=== PATIENT | female | born 1995 | race Asian ===

== ENCOUNTER 2017-01-23 12:27 | Emergency (ER) | payer MEDICAID ==
[2017-01-23 12:49] VITALS: RESP 16; TEMP 97.9; O2SAT 99
[2017-01-23] MEDS ORDERED: IBUPROFEN 600 MG TAB PO ONE (14:08)
--- NOTE | 2017-01-23 14:09 | EDPHY ---
H & P Smoking Status: Never smoked Time Seen by Provider: 01/23/17 13:26 HPI/ROS: CHIEF COMPLAINT: Ring stuck on finger HISTORY OF PRESENT ILLNESS: This is a 21-year-old female presenting to the emergency department reports trying on engagement ring yesterday evening and has been having a hard time trying to get the ring off. She said she tried using dental floss and [place] without resolved. Complaining of right ring finger swelling. Denies any other complaints REVIEW OF SYSTEMS: Constitutional: No fever, no chills. Eyes: No discharge. ENT: No sore throat. Cardiovascular: No chest pain, no palpitations. Respiratory: No cough, no shortness of breath. Musculoskeletal: No back pain. Right ring finger pain and swelling Skin: No rashes. Neurological: No headache. (Fauzia Olivia) Physical Exam: General Appearance: Alert and no distress. Eyes: Pupils equal and round no injection. Respiratory: lungs are clear to auscultation. Cardiac: regular rate and rhythm Musculoskeletal: Neck full range of motion. Right ring finger tender at the MIP joint. We were able to cut ring off. Full range of motion. Positive CMS intact Extremities have full range of motion and are nontender. Skin: No rashes or lesions. (Fauzia Olivia) Constitutional: Initial Vital Signs Temperature (C) 36.6 C 01/23/17 12:43 Heart Rate 88 01/23/17 12:43 Respiratory Rate 16 01/23/17 12:43 Blood Pressure 118/76 01/23/17 12:43 O2 Sat (%) 99 01/23/17 12:43 O2 Delivery Mode Room Air Allergies/Adverse Reactions: No Known Allergies Allergy (Unverified 01/23/17 12:49) Medical Decision Making Procedures: Ring removal: Used ring cutter on time in band on right ring finger. Patient tolerated procedure well ring was removed no injuries positive CMS intact full range of motion (Fauzia Olivia) ED Course/Re-evaluation: Discussed ED plan of care: We were able to cut ring off finger. Patient placed in finger splint ibuprofen given (Fauzia Olivia) I did not see this patient while she was in the emergency department. However her care was discussed with the nurse practitioner while the patient was in the department. I agree with treatment plan and management (Vel Alves) Differential Diagnosis: Other differential diagnosis considered but not limited to finger sprain, laceration, and joint infection (Fauzia Olivia) - Data Points Medications Given: Discontinued Medications Ibuprofen (Motrin) 600 mg PO EDNOW ONE Stop: 01/23/17 14:09 Last Admin: 01/23/17 14:21 Dose: 600 mg Departure - Departure Disposition: Home, Routine, Self-Care Clinical Impression: Swollen finger Condition: Good Instructions: Swollen Joint (ED) Additional Instructions: 1. Ice 15 minutes every hour for the next few hours to help decrease swelling 2. Continue using ibuprofen for the next 1-2 days 600 mg every 6-8 hours 3. Wear finger splint for the next couple of days 4. Have your ring re-sized Referrals: DAYA CARRASCO [Other] - As per Instructions
[2017-01-23 14:26] VITALS: BP 110/73; PULSE 75
== END 2017-01-23 14:25 | disposition home or self-care (01) ==
DX: M79.89 Other specified soft tissue disorders (principal)
CPT/HCPCS: L3925